=== PATIENT | male | born 1965 | race Caucasian/White ===

== ENCOUNTER 2019-07-31 15:01 | Emergency (ER) | payer MEDICAID ==
[~2019-07-31] VITALS: Ht 193 cm; Wt 117.9 kg
[~2019-07-31 15:01] MED LIST: BUPR-40; BUSP15TA52; GABA300C10 PO; IBU600T PO; TRAM-411; WARF5INJ
[2019-07-31 15:19] VITALS: BP 115/74
== END 2019-07-31 18:58 | disposition home or self-care (01) ==
LOC: EDBD 15:01 → ER 15:01
DX: C22.9 Malignant neoplasm of liver, not specified as primary or secondary (principal); J44.9 Chronic obstructive pulmonary disease, unspecified; E11.9 Type 2 diabetes mellitus without complications; E78.5 Hyperlipidemia, unspecified; I10 Essential (primary) hypertension; F17.210 Nicotine dependence, cigarettes, uncomplicated; F12.10 Cannabis abuse, uncomplicated; R41.82 Altered mental status, unspecified; Z51.5 Encounter for palliative care; Z66 Do not resuscitate; Z91.81 History of falling
CPT/HCPCS: 70450